=== PATIENT | male | born 1945 | race Caucasian/White ===

== ENCOUNTER 2017-03-20 04:52 | Inpatient (IN) | payer MEDICARE ==
--- NOTE | 2017-03-20 05:35 | C.PDOC ---
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 Pt notes that he woke up in the middle of the night to urinate when he began to not feel well, became dizzy and ended up on the floor. Pt is a poor historian and unable to articulate or recall if he fainted or fell. Pt questioned in Kyrgyz and Creole (using in gem expert services, gem expert # [id number]) but still gives vague answers. Pt denies chest pain, SOB, dizziness, fever , chills, nausea, or vomiting. pt doesn't feel dizzy now. Time Seen by Provider: 03/20/17 05:31 Chief Complaint (Nursing): Abnormal Skin Integrity History Per: Patient History/Exam Limitations: language barrier (#2912) Onset/Duration Of Symptoms: Hrs Current Symptoms Are (Timing): Still Present Location Of Injury: Anterior: Mouth (Bottom lip) Severity: Mild Recent travel outside of the [place]: No Additional History Per: Patient Past Medical History Reviewed: Historical Data (bph), Nursing Documentation, Vital Signs Vital Signs: Last Vital Signs Temp 98 F 03/20/17 05:02 Pulse 84 03/20/17 05:02 Resp 16 03/20/17 05:02 BP 150/92 H 03/20/17 05:02 Pulse Ox 99 03/20/17 07:59 - Medical History PMH: Diabetes Other PMH: prostate problems - [facility] Procedures COLONOSCOPY (07/18/99) CYSTOSCOPY NEC (12/25/99) ESOPHAGOGASTRODUODENOSCOPY [EGD] W/CLOSED BIOPSY (04/21/99) RADICAL EXCIS SKIN LES (10/13/98) RETROGRADE PYELOGRAM (12/25/99) Family History: States: Unknown Family Hx - Social History Hx Tobacco Use: Yes Hx Alcohol Use: No Hx Substance Use: No - Immunization History Hx Tetanus Toxoid Vaccination: No Hx Influenza Vaccination: No Hx Pneumococcal Vaccination: No Review Of Systems Review Of Systems: ROS cannot be obtained secondary to pt's inabilty to answer questions. Constitutional: Negative for: Fever, Chills Eyes: Negative for: Vision Change Cardiovascular: Negative for: Chest Pain Respiratory: Negative for: Cough, Shortness of Breath Gastrointestinal: Negative for: Nausea, Vomiting, Abdominal Pain Genitourinary: Negative for: Dysuria, Frequency, Incontinence Skin: Positive for: Lesions (Laceration to the bottom lip) Neurological: Negative for: Weakness, Numbness, Dizziness Physical Exam - Physical Exam Appears: Non-toxic, No Acute Distress Skin: Warm, Dry, Other (2 cm diagonal deep laceration to area between chin and lower lips. ) Head: Normacephalic, Abrasion (inner lip), Laceration (2cm deep laceration to the upper chin/ lower bottom lip.) Eye(s): bilateral: EOMI, Other (Pinpoint pupils. No hemotympanum) Oral Mucosa: Moist Lips: Other (abrasions to inner lower lip from teeth) Teeth: Other (teeth intact, not tender to palp, not loose. ) Neck: Trachea Midline, Supple Chest: Symmetrical Cardiovascular: Rhythm Regular Respiratory: Normal Breath Sounds, No Rales, No Rhonchi, No Wheezing Gastrointestinal/Abdominal: Soft, No Tenderness Extremity: No Pedal Edema, No Calf Tenderness, Capillary Refill (<2secs), No Deformity Neurological/Psych: Oriented x3, Normal Speech, Normal Cranial Nerves, Normal Motor, Normal Sensation, Other (No focal deficit) Gait: Steady ED Course And Treatment - Laboratory Results Result Diagrams: 03/20/17 06:17 03/20/17 06:17 ECG: Interpreted By Me, Viewed By Me ECG Rhythm: Sinus Rhythm ECG Interpretation: Abnormal Interpretation Of ECG: Nonspecific T wave abnormality Rate From EC O2 Sat by Pulse Oximetry: 99 (RA) Pulse Ox Interpretation: Normal Laceration - Laceration Repair chin Wound Length (In cm): 2 cm Description Of Wound: Linear, Clean Anesthesia: Lidocaine 1% Wound Examination: Irrigated With Saline, No FB With Wound Exploration, No Tendon Injury With Wound Exploration Wound Closure: Suture Suture Technique And Material Used: Running, Interrupted Wound Complexity: Simple Medical Decision Making Medical Decision Making: Impression: 71 y/o male c/o 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 discussed with Dr Echavarria. will admit pt to his service on tele. Disposition - Disposition Disposition: HOSPITALIZED Disposition Time: 08:02 Condition: STABLE - Clinical Impression Clinical Impression: Syncope and collapse, Diabetes - Scribe Statement The provider has reviewed the documentation as recorded by the Scribe Roland perales All medical record entries made by the Scribe were at my direction and personally dictated by me. I have reviewed the chart and agree that the record accurately reflects my personal performance of the history, physical exam, medical decision making, and the department course for this patient. I have also personally directed, reviewed, and agree with the discharge instructions and disposition. Decision To Admit - Pt Status Changed To: Hospital Disposition Of: Observation - . Bed Request Type: Telemetry Admitting Physician: Constantino Macedo Patient Diagnosis: Syncope and collapse, Diabetes
[2017-03-20] MEDS ORDERED: Lidocaine 1% Inj (20ml) INFIL ONE (05:46)
[2017-03-20] MEDS ORDERED: Lidocaine 1% Inj (20ml) ONE (06:12)
[2017-03-20 06:24] LABS: BASO % 0.4 % (0.0-2.0); EOS # 0.1 K/uL (0.0-0.7); EOS % 0.6 % (0.0-4.0); HEMATOCRIT 46.3 % (35.0-51.0); LYMPH # 2.2 K/uL (1.0-4.3); LYMPH % 22.6 % (20.0-40.0); MEAN CELL VOLUME 99.7 fL (80.0-94.0); MEAN CORPUSCULAR HEMOGLOBIN 34.4 pg (27.0-31.0); MEAN CORPUSCULAR HGB CONC 34.5 g/dL (33.0-37.0); MEAN PLATELET VOLUME 8.4 fL (7.2-11.7); MONO # 0.7 K/uL (0.0-0.8); MONO % 7.6 % (0.0-10.0); RED CELL DISTRIBUTION WIDTH 12.8 % (11.5-14.5); WHITE BLOOD COUNT 9.6 K/uL (4.8-10.8)
[2017-03-20 06:32] LABS: CHLORIDE 102 mmol/L (98-107); SODIUM 140 mmol/L (132-148)
[2017-03-20 06:34] LABS: GFR AFRICAN-AMERICAN > 60
[2017-03-20 06:35] LABS: ALB/GLOB RATIO 1.3 (1.0-2.1); ALKALINE PHOSPHATASE 56 U/L (38-126); ALT/SGPT 35 U/L (21-72); AST/SGOT 24 U/L (17-59); BILIRUBIN,TOTAL 1.6 mg/dL (0.2-1.3); BLOOD UREA NITROGEN 11 mg/dL (9-20); CALCIUM 8.7 mg/dl (8.6-10.4); CARBON DIOXIDE 25 mmol/L (22-30); GLUCOSE,RANDOM 181 mg/dL (75-110); TOTAL PROTEIN 6.9 g/dL (6.3-8.3)
--- NOTE | 2017-03-20 07:58 | CT ---
EXAM: CT Cervical Spine Without Intravenous Contrast CLINICAL HISTORY: 71 years old, male; Pain; Neck pain; Additional info: Fall ? loc TECHNIQUE: Axial computed tomography images of the cervical spine without intravenous contrast. This CT exam was performed using one or more of the following dose reduction techniques: automated exposure control, adjustment of the mA and/or kV according to patient size, and/or use of iterative reconstruction technique. Coronal and sagittal reformatted images were created and reviewed. EXAM DATE/TIME: 03/20/2017 5:46 AM COMPARISON: No relevant prior studies available. FINDINGS: Vertebrae: Osteophytes, most prominent at C5 and C6. No acute fracture or subluxation. Midline non-fusion cleft posterior arch of C6 Discs/spinal canal/neural foramina: Facet joint arthrosis, most prominent at C3-4. Narrowing of C5-6 disc and to a lesser extent C6-7. Uncovertebral joint hypertrophy and bony foramina encroachment at both levels, greater at C5-6. Also broad based spondylotic ridge at C5-6 with effacement of anterior subarachnoid space. Soft tissues: Unremarkable. Lung apices: Unremarkable as visualized. IMPRESSION: No acute bony injury. Degenerative changes.
--- NOTE | 2017-03-20 07:59 | CT ---
EXAM: CT Head Without Intravenous Contrast CLINICAL HISTORY: 71 years old, male; Pain; Headache; Additional info: Fall 2/.2 dizziness, ? loc TECHNIQUE: Axial computed tomography images of the head/brain without intravenous contrast. This CT exam was performed using one or more of the following dose reduction techniques: automated exposure control, adjustment of the mA and/or kV according to patient size, and/or use of iterative reconstruction technique. EXAM DATE/TIME: 03/20/2017 5:45 AM COMPARISON: No relevant prior studies available. FINDINGS: There is no hemorrhage. No edema, midline shift or mass effect is noted. There is normal camacho white differentiation. Ventricles, cisterns and sulci are normal for age. Calvarium is unremarkable. Included paranasal sinuses and mastoids are clear. IMPRESSION: No acute cerebral hemorrhage or edema.
[2017-03-20 08:19] LABS: RBC URINE 2 /hpf (0-3); URINE BILIRUBIN NEGATIVE (NEGATIVE); URINE BLOOD NEGATIVE (NEGATIVE); URINE COLOR Yellow (YELLOW); URINE GLUCOSE (UA) NORMAL (Normal); URINE KETONE NEGATIVE (NEGATIVE); URINE LEUKOCYTE ESTERASE NEG Leu/uL (Negative); URINE PROTEIN NEGATIVE (NEGATIVE); URINE UROBILINOGEN NORMAL mg/dL (0.2-1.0); WBC URINE 1 /hpf (0-5)
[2017-03-20] MEDS: (Novolog) Insulin Aspart, Recombinant 100 u/ml 10 ml vial SC SCH ×3 (14:21→21:57)
--- NOTE | 2017-03-20 18:20 | CARD ---
APPROVED REPORT EXAM: Two-dimensional and M-mode echocardiogram with Doppler and color Doppler. Other Information Quality : GoodRhythm : INDICATION Syncope RISK FACTORS Diabetes M-Mode DIMENSIONS RVDd1.46 (2.1-3.2cm)Left Atrium (MM)3.47 (2.5-4.0cm) IVSd1.17 (0.7-1.1cm)Aortic Root3.68 (2.2-3.7cm) LVDd4.46 (4.0-5.6cm)Aortic Cusp Exc.1.74 (1.5-2.0cm) PWd1.11 (0.7-1.1cm)FS (%) 36 % LVDs2.83 (2.0-3.8cm)LVEF (%)66 (>50%) Mitral Valve MV E Vykjhcvu28.2cm/sMV A Xofgrsmx27.3cm/sE/A ratio0.9 TDI E/Lateral E'0.0E/Medial E'0.0 Tricuspid Valve TR Peak Lntslwqd319pf/sTR Peak Gr.[id number] LEFT VENTRICLE The left ventricle is normal size. There is normal left ventricular wall thickness. The left ventricular function is normal. The left ventricular ejection fraction is within the normal range. There is normal LV segmental wall motion. The left ventricular diastolic function is normal. RIGHT VENTRICLE The right ventricle is normal size. ATRIA The left atrium size is normal. The right atrium size is normal. AORTIC VALVE The aortic valve is normal in structure. MITRAL VALVE The mitral valve is normal in structure. TRICUSPID VALVE There is trace tricuspid regurgitation. <Conclusion> Normal LV systolic function. Normal chamber size. Trace to mild TR.
[2017-03-20] MEDS ORDERED: Iodixanol 320 MG/ML 100 ML BOTTLE IV ONE (19:38)
--- NOTE | 2017-03-20 19:53 | CON ---
DATE: 03/20/2017 REASON FOR CONSULTATION: Syncope. The patient is a 71-year-old male from [facility] who has a history of hypertension, diabetes mellitus and is a smoker. He presented because of a syncopal episode. The patient stated that he felt dizzy and lost consciousness, fell and hit his chin, required stitches below his lips. The patient denies any prior similar episodes. He denies any chest pain or shortness of breath and is unaware of any histo ry of heart attack in the past. MEDICATIONS: Bystolic 5 mg daily, Crestor 5 mg at bedtime, aspirin 81 mg once a day, Flomax 0.4 mg t wice a day, Glucophage 500 mg daily, NovoLog insulin. REVIEW OF SYSTEMS: No headache, no fever or chills. No tremors. No productive cough and no retrost ernal chest pain. PHYSICAL EXAMINATION: GENERAL: The patient is an elderly male who does not appear to be in acute distress. VITAL SIGNS: Blood pressure 131/ , heart rate 92, temperature 98, respiration 20. HEENT: Normocephalic. NECK: No JVD. CHEST: Clear. HEART: S1, S2 regular. ABDOMEN: Soft. EXTREMITIES: No edema. Cervical spine x-ray: No acute bony injuries, degenerative changes. Head CT scan without contrast: No acute cerebral hemorrhage or edema. Carotid Doppler revealed severe left-sided internal carotid artery stenosis. LABORATORIES: SMA-7 is within normal limits except for glucose of 181, total bilirubin slightly elev ated at 1.6. One set of troponin is negative. Hemoglobin, hematocrit, white count and platelet coun t are within normal limits. EKG revealed normal sinus rhythm at a rate of 70. ASSESSMENT: 1. Syncopal episode. 2. Severe left carotid artery stenosis. 3. Hypertension and diabetes mellitus. RECOMMENDATIONS: Continue current Bystolic 5 mg once a day, aspirin 81 mg once a day, Crestor at 5 m g once a day. I will review the echocardiograph study performed today. Case was discussed with AGENCY RECRUITER. I recommend either a carotid MRA of CT angio of the neck and also a vascular surgical evaluation. The patient already has neuro consultation. Cruz Garland MD cc: [id number] TT: 03/20/2017 19:52:51 Confirmation # [id number] Dictation # [id number]
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
--- NOTE | 2017-03-20 21:39 | CT ---
EXAM: CT Angiography Neck With Intravenous Contrast CLINICAL HISTORY: 71 years old, male; Condition or disease; Occlusion or stenosis of cerebral arteries; Additional info: Carotid artery stenosis TECHNIQUE: Axial computed tomographic angiography images of the neck with intravenous contrast using CT angiography protocol. This CT exam was performed using one or more of the following dose reduction techniques: automated exposure control, adjustment of the mA and/or kV according to patient size, and/or use of iterative reconstruction technique. 3D and MIP reconstructed images were created and reviewed. Coronal and sagittal reformatted images were created and reviewed. CONTRAST: 100 mL of visipaque 320 administered intravenously. EXAM DATE/TIME: Exam ordered 03/20/2017 5:38 PM COMPARISON: No relevant prior studies available. FINDINGS: VASCULATURE: Right common carotid artery: Unremarkable. No significant stenosis. No dissection or occlusion. Right internal carotid artery: There is a small amount of calcified plaque noted within the proximal right internal carotid artery. Extracranial segment is patent with no significant stenosis. No dissection or occlusion. Right external carotid artery: Unremarkable. No occlusion. Right vertebral artery: Unremarkable. No significant stenosis. No dissection or occlusion. Left common carotid artery: Unremarkable. No significant stenosis. No dissection or occlusion. Left internal carotid artery: There is a high-grade pinpoint stenosis noted of the proximal left internal carotid artery. At the point oftightest stenosis the lumen measures approximately a millimeter. Distally the vessel is a small in caliber. Calcified and soft plaque is noted at the left carotid bulb. No dissection or occlusion. Left external carotid artery: Unremarkable. No occlusion. Left vertebral artery: Unremarkable. No significant stenosis. No dissection or occlusion. NECK: Bones/joints: No acute fracture. No dislocation. Soft tissues: Unremarkable as visualized. No mass. CAROTID STENOSIS REFERENCE USING NASCET CRITERIA: % ICA stenosis = (1 - narrowest ICA diameter/diameter of distal cervical ICA) x 100. Mild - <50% stenosis. Moderate - 50-69% stenosis. Severe - 70-94% stenosis. Near occlusion - 95-99% stenosis. Occluded - 100% stenosis. IMPRESSION: 1. Severe stenosis of the left proximal internal carotid artery estimated to be 90%. Distally the vessel is attenuated but continuous suggesting poststenotic underperfusion. 2. Plaque in the right carotid bulb with the no hemodynamically significant stenosis Images were attached to this report and are available at [email or web address]
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
[2017-03-21] MEDS: (Novolog) Insulin Aspart, Recombinant 100 u/ml 10 ml vial SC SCH ×4 (08:25→21:24)
[2017-03-21 10:03] LABS: THYROID STIMULATING HORMONE 1.66 mIU/L (0.46-4.68)
--- NOTE | 2017-03-21 10:56 | VASCLAB ---
PROCEDURE: HISTORY: syncope COMPARISON: None available. TECHNIQUE: Grayscale and duplex Doppler evaluation of the cervical carotid and vertebral arteries were performed. The common carotid, carotid bifurcations and cervical Internal Carotid Artery (ICA) and proximal External Carotid Artery (ECA) were evaluated. The vertebral arteries were evaluated for gross patency and flow direction. Report prepared by Isak Frederick, BS, RVT FINDINGS: RIGHT CAROTID ARTERIES: 1. Common Carotid Artery: No significant focal plaque formation of the right common carotid artery. Maximum Peak Systolic velocity: 98 cm/sec: End-diastolic velocity 24 cm/sec. 2. Carotid Bifurcation: Calcific plaque formation. Maximum Peak Systolic velocity: 74 cm/sec: End-diastolic velocity 11 cm/sec. 3. Internal Carotid Artery: Moderate plaque formation of the right proximal ICA which dose not results in hemodynamically significant stenosis. Plaque description: Calcific 3.1. Proximal Segment: Peak systolic velocity 67 cm/sec: End-diastolic velocity 20 cm/sec - % stenosis 0-15% 3.2. Middle Segment: Peak systolic velocity 98 cm/sec: End-diastolic velocity 29 cm/sec - % stenosis 0-15% 3.3. Distal Segment: Peak systolic velocity 68 cm/sec: End-diastolic velocity 19 cm/sec - % stenosis 0-15% 4. External Carotid Artery: No significant focal plaque formation. Peak systolic velocity 77 cm/sec 5. ICA/CCA Ratio: 1.0 LEFT CAROTID ARTERIES: 1. Common Carotid Artery: No significant focal plaque formation of the left common carotid artery. Maximum Peak Systolic velocity: 68 cm/sec: End-diastolic velocity 9 cm/sec. 2. Carotid Bifurcation: Heterogeneous plaque formation. Maximum Peak Systolic velocity: 80 cm/sec: End-diastolic velocity 8 cm/sec. 3. Internal Carotid Artery: Severe plaque formation of the left proximal ICA which results in a hemodynamically significant stenosis. Plaque description: Heterogeneous 3.1. Proximal Segment: Peak systolic velocity 548 cm/sec: End-diastolic velocity 162 cm/sec - % stenosis 70-95% 3.2. Middle Segment: Peak systolic velocity 49 cm/sec: End-diastolic velocity 0 cm/sec - % stenosis 0-15% 3.3. Distal Segment: Peak systolic velocity 32 cm/sec: End-diastolic velocity 0 cm/sec - % stenosis 0-15% 4. External Carotid Artery: No significant focal plaque formation. Peak systolic velocity 77 cm/sec 5. ICA/CCA Ratio: 8.1 VERTEBRAL ARTERIES: 1. Right Vertebral Artery: The right vertebral artery flow direction is antegrade. 2. Left Vertebral Artery: The left vertebral artery flow direction is antegrade. OTHER FINDINGS: 1. Right Brachial Blood pressure: 136 mmHg. 2. Left Brachial Blood pressure: MmHg. CLEO Waldron notified about the findings. IMPRESSION: RIGHT: Duplex scan does not suggest hemodynamically significant stenosis of the right extracranial carotid arteries. LEFT: Duplex scan does not suggest hemodynamically significant stenosis of the left extracranial carotid arteries.
[2017-03-21] MEDS: Enoxaparin 40 mg Syringe SC SCH (13:51)
--- NOTE | 2017-03-21 15:43 | MRI ---
PROCEDURE: MRI BRAIN WITHOUT CONTRAST HISTORY: syncope COMPARISON: Comparison is made to the previous CT dated 03/20/2017. TECHNIQUE: Multiplanar, multisequence MR images of the brain were obtained without intravenous contrast enhancement. FINDINGS: HEMORRHAGE: None DWI: No evidence of an acute or early subacute infarction. BRAIN PARENCHYMA: No mass effect or edema. Mild atrophy is noted. Mild white matter changes are also noted likely due to chronic microvascular ischemic disease. VENTRICLES: Unremarkable. No hydrocephalus. CRANIUM: Unremarkable. ORBITS: Grossly unremarkable. PARANASAL SINUSES/MASTOIDS: Clear VASCULAR SYSTEM: Skull base flow voids intact. OTHER FINDINGS: None. IMPRESSION: No evidence of acute pathology in the brain. Mild atrophy and mild chronic microvascular white matter ischemic disease.
--- NOTE | 2017-03-21 16:09 | CP.PCM.PN ---
Subjective - Date & Time of Evaluation Date of Evaluation: 03/21/17 Time of Evaluation: 16:05 - Subjective Subjective: Surgery: Dr. Morgan covering Dr. Cervantes Patient states he occasionally feels lightheaded while walking to the bathroom. Otherwise patient reports feeling better. Objective - Vital Signs/Intake and Output Vital Signs (last 24 hours): Temp Pulse Resp BP Pulse Ox 98.2 F 76 20 118/72 97 03/21/17 15:37 03/21/17 15:37 03/21/17 15:37 03/21/17 15:37 03/21/17 15:37 Intake and Output: 03/21/17 03/21/17 06:59 18:59 Intake Total 340 Balance 340 - Medications Medications: Current Medications Aspirin (Ecotrin) 81 mg PO DAILY [facility] Last Admin: 03/21/17 10:10 Dose: 81 mg Enoxaparin Sodium (Lovenox) 40 mg SC DAILY [facility] Last Admin: 03/21/17 13:51 Dose: 40 mg Insulin Aspart (Novolog) 0 unit SC [facility] PRN Reason: Protocol Last Admin: 03/21/17 13:52 Dose: Not Given Nebivolol (Bystolic) 5 mg PO DAILY [facility] Last Admin: 03/21/17 10:10 Dose: 5 mg Rosuvastatin Calcium (Crestor) 20 mg PO [facility] Tamsulosin HCl (Flomax) 0.4 mg PO BID [facility] Last Admin: 03/21/17 10:10 Dose: 0.4 mg - Constitutional Appears: Non-toxic, No Acute Distress - Head Exam Head Exam: ATRAUMATIC, NORMOCEPHALIC - Eye Exam Eye Exam: EOMI, Normal appearance - ENT Exam ENT Exam: Mucous Membranes Moist, Normal Oropharynx - Respiratory Exam Respiratory Exam: NORMAL BREATHING PATTERN. absent: Respiratory Distress - Cardiovascular Exam Cardiovascular Exam: REGULAR RHYTHM. absent: Tachycardia - Neurological Exam Neurological Exam: Alert, Awake, CN II-XII Intact, Oriented x3 Neuro motor strength exam: Left Upper Extremity: 5, Right Upper Extremity: 5, Left Lower Extremity: 5, Right Lower Extremity: 5 - Psychiatric Exam Psychiatric exam: Normal Affect, Normal Mood - Skin Skin Exam: Dry, Warm Assessment and Plan - Assessment and Plan (Free Text) Assessment: 71 y/o male w/ carotid artery stenosis Plan: -at this time patient unsure about pursuing surgery -will discuss w/ primary physician -discussed risks benefits of surgery as well as risks of non surgical treatment -patient aware -further recs per Dr. Morgan covering for Dr. Billy Coates PGY1
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
--- NOTE | 2017-03-21 23:05 | CARD ---
APPROVED REPORT EKG Measurement Heart [id number] <Conclusion> Normal sinus rhythm Nonspecific T wave abnormality Abnormal ECG
[2017-03-22 07:28] LABS: CHLORIDE 104 mmol/L (98-107)
[2017-03-22 07:29] LABS: POTASSIUM 4.2 mmol/L (3.6-5.2); SODIUM 140 mmol/L (132-148)
[2017-03-22 07:31] LABS: GFR AFRICAN-AMERICAN > 60
[2017-03-22 07:32] LABS: BLOOD UREA NITROGEN 17 mg/dL (9-20); CALCIUM 8.6 mg/dl (8.6-10.4); CARBON DIOXIDE 27 mmol/L (22-30); GLUCOSE,RANDOM 116 mg/dL (75-110)
--- NOTE | 2017-03-22 08:38 | PN ---
DATE: 03/22/2017 NEUROLOGICAL PROBLEM: Syncopal attack, asymptomatic significant carotid artery stenosis. PHYSICAL EXAMINATION: VITAL SIGNS: Blood pressure 101/59, mean arterial pressure of 73, respiratory rate 16, temperature a febrile. NEUROLOGIC: The patient's examination is unchanged to compare with my previous examination. His workup has been discussed with the patient. He stated he does not want to do any surgery at this point. Pros and cons of carotid endarterectomy have been discussed. In spite of that, knowing the beneficial effect, he still declined to go for surgery. At this point, I would like him to continue dual antiplatelets, aspirin as well as the Plavix. Jonathan nue cholesterol control and stabilize the blood pressure with angiotensin receptor pat or angiote nsin converting enzyme inhibitors. The patient will be followed if needed. Fco Miller MD cc: [id number] TT: 03/22/2017 08:37:36 Confirmation # [id number] Dictation # [id number] [id number]
[2017-03-22] MEDS: (Novolog) Insulin Aspart, Recombinant 100 u/ml 10 ml vial SC SCH ×4 (09:12→22:11)
[2017-03-22] MEDS: Enoxaparin 40 mg Syringe SC SCH (10:39)
--- NOTE | 2017-03-22 11:04 | PN ---
DATE: 03/21/2017 Today the patient is alert and awake and oriented x 3. Although the patient is still having some diz ziness and last night while he was going to go to the bathroom, the patient felt somewhat dizzy. The patient stated that he had to ring the emergency blackwell in the bathroom to get some help. Now patient denies any nausea, vomiting, no chest pain. However the patient admits having some epigastric pain, especially when he is feeling dizzy and the patient also feels somewhat awake at time. PHYSICAL EXAMINATION: VITAL SIGNS: The patient has a blood pressure of 118/72, pulse 76, respirations 20, temperature 98.2 . HEENT: Head is normocephalic. NECK: Supple and there is no JVD, no carotid bruit noted. LUNGS: Clear. HEART: Regular rate and rhythm. ABDOMEN: Soft and nontender. Mild epigastric tenderness. EXTREMITIES: There is no edema. LABORATORY DATA: The patient had some blood tests done and the blood tests from yesterday showed WBC 9.6, hemoglobin 16, hematocrit 46.3 and platelet is 152. The chemistry from yesterday showed actual ly that ____ 210 and ____ only 175, 150. Hemoglobin A1c is only 5.4 patient. The patient had also a n MRI of the brain done today, that showed no evidence of acute pathology in the brain, mild atrophy and mild chronic microvascular white matter ischemic disease. Also, patient had a CT angio yesterday that has shown right common carotid artery is unremarkable, no significant stenoses, but there is se mary stenoses of the left proximal internal carotid artery estimated to be 90%, distally this vessel is attenuated but ____ perfusion. There is a plaque in the right carotid bulb with no hemodynamicall y significant stenoses. Also the patient had a carotid Doppler that also has revealed the common car otid artery again no significant plaque formation of the right carotid artery, but there is ____ thanh w is antegrade. The left ventricular artery flow is also antegrade and the common carotid artery not significant for ____ formation ____ plaque formation ____ transformation. PLAN: We have a consult with ____ was called and also will have a consult with Dr. Huffman, to phys iologist, and discussed with the patient regarding the surgery for the carotid artery occlusion, but the patient did not really want to do so at this time. The patient will be put on ____ and will star t the patient also on Coumadin. The case was discussed and reviewed with Peggy MERAZ and we are going to continue to anticoagulate the patient. Constantino Macedo MD cc: [id number] TT: 03/21/2017 20:18:03 Confirmation # [id number] Dictation # [id number] [id number]
--- NOTE | 2017-03-22 13:04 | CP.PCM.PN ---
Subjective - Date & Time of Evaluation Date of Evaluation: 03/22/17 Time of Evaluation: 07:00 - Subjective Subjective: VASCULAR SURGERY PROGRESS NOTE FOR DR. GIBSON (covering for Dr. Cervantes) Patient seen and examined at bedside. He reports having mild occasional dizziness. He continues to refuse surgery for his carotid stenosis. Objective - Vital Signs/Intake and Output Vital Signs (last 24 hours): Temp Pulse Resp BP Pulse Ox 97.7 F 79 20 128/73 95 03/22/17 08:05 03/22/17 08:05 03/22/17 08:05 03/22/17 08:05 03/22/17 08:05 Intake and Output: 03/22/17 03/22/17 06:59 18:59 Intake Total 120 Balance 120 - Medications Medications: Current Medications Amlodipine Besylate (Norvasc) 5 mg PO DAILY [facility] Aspirin (Ecotrin) 81 mg PO DAILY [facility] Last Admin: 03/22/17 10:39 Dose: 81 mg Clopidogrel Bisulfate (Plavix) 75 mg PO DAILY [facility] Last Admin: 03/22/17 10:39 Dose: 75 mg Enoxaparin Sodium (Lovenox) 40 mg SC DAILY [facility] Last Admin: 03/22/17 10:39 Dose: 40 mg Insulin Aspart (Novolog) 0 unit SC [facility] PRN Reason: Protocol Last Admin: 03/22/17 12:19 Dose: 2 unit Rosuvastatin Calcium (Crestor) 20 mg PO HS [facility] Last Admin: 03/21/17 21:28 Dose: 20 mg Tamsulosin HCl (Flomax) 0.4 mg PO BID [facility] Last Admin: 03/22/17 10:40 Dose: 0.4 mg - Labs Labs: 03/22/17 06:50 - Constitutional Appears: Non-toxic, No Acute Distress - Head Exam Head Exam: NORMAL INSPECTION - Eye Exam Eye Exam: EOMI - Respiratory Exam Respiratory Exam: NORMAL BREATHING PATTERN. absent: Respiratory Distress - Cardiovascular Exam Cardiovascular Exam: +S1, +S2 - Neurological Exam Neurological Exam: Alert, Awake, Oriented x3 - Psychiatric Exam Psychiatric exam: Normal Affect, Normal Mood - Skin Skin Exam: Dry, Normal Color, Warm Assessment and Plan - Assessment and Plan (Free Text) Assessment: 71yo M with left carotid artery stenosis - We recommend surgical carotid endarterectomy - Patient still refuses any surgical intervention for carotid artery stenosis - The risks and benefits of the surgery were explained in detail to the patient yesterday by Dr. Morgan. Patient understands risks. - On Aspirin and Plavix, cholesterol control and BP control per Dr. Miller - Further discussion with primary regarding treatment options - Discussed plan with Dr. Yumiko Pastor PGY-2
[2017-03-22 13:11] VITALS: O2SAT 98
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
[2017-03-23] MEDS: (Novolog) Insulin Aspart, Recombinant 100 u/ml 10 ml vial SC SCH ×2 (07:45→12:08)
[2017-03-23 08:36] VITALS: BP 112/68; PULSE 75; RESP 20; TEMP 98.1
[2017-03-23] MEDS: Enoxaparin 40 mg Syringe SC SCH (10:10)
--- NOTE | 2017-03-23 13:15 | CP.PCM.PN ---
Subjective - Date & Time of Evaluation Date of Evaluation: 03/23/17 Time of Evaluation: 13:00 - Subjective Subjective: Pt seen today , denies dizziness c/o hip pain no other complaints voiced . Dr. Cervantes seen today and discussed with patient regarding the benefits of the surgery over medical management for carotid stenosis Patient refused surgery for his carotid stenosis. BP and HR stable Objective - Vital Signs/Intake and Output Vital Signs (last 24 hours): Temp Pulse Resp BP Pulse Ox 98.1 F 75 20 112/68 98 03/23/17 08:36 03/23/17 09:15 03/23/17 08:36 03/23/17 08:36 03/23/17 08:36 Intake and Output: 03/23/17 03/23/17 06:59 18:59 Intake Total 240 Balance 240 - Medications Medications: Current Medications Amlodipine Besylate (Norvasc) 5 mg PO DAILY [facility] Aspirin (Ecotrin) 81 mg PO DAILY [facility] Last Admin: 03/23/17 10:10 Dose: 81 mg Clopidogrel Bisulfate (Plavix) 75 mg PO DAILY [facility] Last Admin: 03/23/17 10:10 Dose: 75 mg Enoxaparin Sodium (Lovenox) 40 mg SC DAILY [facility] Last Admin: 03/23/17 10:10 Dose: 40 mg Insulin Aspart (Novolog) [address] [facility] PRN Reason: Protocol Last Admin: 03/23/17 12:08 Dose: 2 unit Rosuvastatin Calcium (Crestor) 20 mg PO HS [facility] Last Admin: 03/22/17 22:23 Dose: 20 mg Tamsulosin HCl (Flomax) 0.4 mg PO BID [facility] Last Admin: 03/23/17 10:10 Dose: 0.4 mg - Labs Labs: 03/22/17 06:50 - Constitutional Appears: Well, Non-toxic, No Acute Distress - Respiratory Exam Respiratory Exam: NORMAL BREATHING PATTERN - Cardiovascular Exam Cardiovascular Exam: REGULAR RHYTHM Assessment and Plan - Assessment and Plan (Free Text) Assessment: A/P 71 yr old male admitted for syncope Carotid doppler + sever stenosis CT - Severe stenosis of the left proximal internal carotid artery estimated to be 90%. Distally the vessel is attenuated but continuous suggesting poststenotic underperfusion. Plaque in the right carotid bulb with the no hemodynamically significant stenosis Pt refused surgery for carotid stenosis , opted medical management seen by Dr. Macedo today, D/W Dr. Macedo, stable for discharge home today with aspirin and plavix an d f/u wiht Dr. Macedo office next Pt instructed to returns to ED if symptoms returns or any other concerning symptoms
--- NOTE | 2017-03-23 13:49 | PN ---
DATE: 03/23/2017 SUBJECTIVE: Today, the patient is alert and awake. Denies any dizziness or shortness of breath, no palpitation. The patient had a bowel movement today and no feeling of passing out. No chest pain PHYSICAL EXAMINATION: VITAL SIGNS: The patient has a blood pressure of 112/68, pulse 75, respiration 20, temperature 98.1. HEENT: Normocephalic. NECK: Supple, no JVD noted, no carotid bruit heard. LUNGS: Clear. HEART: Regular rate and rhythm. ABDOMEN: Soft and nontender. No palpable mass and ____ mild tenderness in the left lower back EXTREMITIES: Some mild tenderness in the right knee. PLAN: As suggested by neurologist the patient will be put on aspirin and Plavix and will be also on Norvasc. EP study as outpatient with Dr. Huffman____. Constantino Macedo MD cc: [id number] TT: 03/23/2017 13:48:57 Confirmation # [id number] Dictation # [id number] maikol
--- NOTE | 2017-03-23 15:33 | CP.PCM.PN ---
Subjective - Date & Time of Evaluation Date of Evaluation: 03/23/17 Time of Evaluation: 07:00 - Subjective Subjective: VASCULAR SURGERY PROGRESS NOTE FOR DR. CHUN AND DR. MORGAN Patient seen and examined at bedside. He denies dizziness but reports some MORRISSEY. Both Dr. Chun and Dr. Morgan spoke with patient regarding the benefits of the surgery over medical management. Patient was again informed of stroke risk if he does not have the CEA. Patient continues to adamantly refuse surgery for his carotid stenosis. Objective - Vital Signs/Intake and Output Vital Signs (last 24 hours): Temp Pulse Resp BP Pulse Ox 98.1 F 75 20 112/68 98 03/23/17 08:36 03/23/17 09:15 03/23/17 08:36 03/23/17 08:36 03/23/17 08:36 Intake and Output: 03/23/17 03/23/17 06:59 18:59 Intake Total 240 Balance 240 - Medications Medications: Current Medications Amlodipine Besylate (Norvasc) 5 mg PO DAILY [facility] Aspirin (Ecotrin) 81 mg PO DAILY [facility] Last Admin: 03/23/17 10:10 Dose: 81 mg Clopidogrel Bisulfate (Plavix) 75 mg PO DAILY [facility] Last Admin: 03/23/17 10:10 Dose: 75 mg Enoxaparin Sodium (Lovenox) 40 mg SC DAILY [facility] Last Admin: 03/23/17 10:10 Dose: 40 mg Insulin Aspart (Novolog) 0 unit SC [facility] PRN Reason: Protocol Last Admin: 03/23/17 12:08 Dose: 2 unit Rosuvastatin Calcium (Crestor) 20 mg PO HS [facility] Last Admin: 03/22/17 22:23 Dose: 20 mg Tamsulosin HCl (Flomax) 0.4 mg PO BID [facility] Last Admin: 03/23/17 10:10 Dose: 0.4 mg - Labs Labs: 03/22/17 06:50 Assessment and Plan - Assessment and Plan (Free Text) Assessment: 71yo M with left carotid artery stenosis - We recommend surgical carotid endarterectomy - Patient still refuses any surgical intervention for carotid artery stenosis - The risks and benefits of the surgery were explained in detail to the patient by both Dr. Chun and Dr. Morgan. Patient understands risks. - On Aspirin and Plavix, cholesterol control and BP control per Dr. Paul - As patient does not wish to have surgery, will sign off at this time - Discussed plan with Dr. Chun and Dr. Cathy Pastor PGY-2
--- NOTE | 2017-03-25 21:07 | EEG ---
DATE: 03/20/2017 This is a 16-channel electroencephalogram of awake and drowsy adult. During the study, photic stimul ation was performed. Hyperventilation was not performed. The resting electroencephalogram consists of 9-11 Hz moderate voltage alpha activity seen at parietal and occipital leads. Anteriorly fast activity superimposed with 2-3 Hz delta activity seen at front al and central leads. Movement artifact contaminated the background rhythm intermittently. The phot ic stimulation did not evoke driving response noted at 2-20 Hz. IMPRESSION: This is a normal electroencephalogram of awake and drowsy adult. During the study, neit her electroencephalographic paroxysmal activities nor focal slowing noted. Fco Miller MD cc: [id number] TT: 03/25/2017 21:07:29 Confirmation # [id number] Dictation # [id number] mn
--- NOTE | 2017-03-26 07:25 | PN ---
DATE: 03/22/2017 Today, the patient is alert and oriented, but the patient is complaining of dizziness and the patient is still having he was going to pass out this morning in the bathroom. The patient denied any chest pain. The patient has a blood pressure of 116/73, pulse is 73, respirations are 20 and temper ature 97.9. NECK: Supple. No JVD. LUNGS: Clear. HEART: Regular rate and rhythm. ABDOMEN: Soft, nontender, no palpable mass and obese. EXTREMITIES: There is no edema. LABORATORY DATA: The blood tests to the patient is that the glucose is 171, sodium 140, potassium 4.2 , chloride 104, bicarb is 27, BUN 17, creatinine 1 and glucose 116 and calcium is 8.6. Hemoglobin A1 c was 5.4. The case was again discussed with the patient regarding surgery, but the patient has . PLAN: We are going to continue the patient with antiplatelet aspirin and Plavix and now, the patient is on Lovenox and also we going to try to contact Dr. Sue the specimen preparation assistant who could consider TERESITA levin. The Neuro progress note Dr. Miller is appreciated. Constantino Macedo MD cc: [id number] TT: 03/22/2017 17:32:00 Confirmation # [id number] Dictation # [id number] 03/26/2017 06:24:25
--- NOTE | 2017-03-30 09:36 | CARD ---
APPROVED REPORT Reason for Test: SYNCOPE Hookup date: 2017-03-22 Removal date: 2017-03-23 Scan date: 2017-03-28 Recording time: 23 HR 59 MIN Heart Rate Data Total Beats: [id number] Min HR: 62 BPM at 4:20AM Avg HR: 75 BPM Max HR: 117 BPM at 6:22AM Supraventricular Ectopy Total VE Beats: 4 (0.0%) Longest R-R: 1.0 sec at 4:20 AM Single PAC's: 4 Conclusion SINUS RHYTHM WITH OCCASIONAL PACS. NO SIGNIFICANT TACHY OR AWAIS ARRYTHMIAS.
--- NOTE | 2017-04-08 21:59 | DS ---
The patient is a 71-year-old man with history of hypertension and diabetes. The patient was brought to the Emergency Room because the patient was found to have a syncopal episode. The patient stated t hat he was in the bathroom, he passed out and fell, and he hit the lower lip. The patient was seen in the Emergency Room and had a suture of the lower lip, and the patient was admitted. The patient d id not remember the circumstances of the syncope, but the patient declared that after that he was fee ling very weak on the floor and it took a lot of time before calling the police and EMS. The patient had a consult with Dr. Garland, cardiology, and Dr. Miller the neurologist. So the patient had mul tiple tests done. Among them, the patient had carotid Doppler that has revealed a severe stenoses an d a severe carotid stenosis. The patient had a consult with Dr. Cervantes. The patient was offered t o have an endarterectomy, but the patient has refused. of the surgery, but the patient s till refused but opted for medical treatment, and the patient will be on Plavix and aspirin as also r ecommended by Dr. Miller, the neurologist. So, patient will be going home on discharge medications, a nd will follow this patient in the office. Constantino Macedo MD cc: [id number] TT: 04/08/2017 21:58:16 sonam
== END 2017-03-23 15:00 | disposition home or self-care (01) | DRG 68 ==
LOC: C.ER 04:52 → C.9E 07:58 → C.5T 09:18 → OBSVTOIN 17:58 → C.6T 03-22 13:16
PROVIDERS: ADMIT Specialist; ATTEND Specialist
DX: I65.22 Occlusion and stenosis of left carotid artery (principal); E11.9 Type 2 diabetes mellitus without complications; I10 Essential (primary) hypertension; R55 Syncope and collapse; S01.511A Laceration without foreign body of lip, initial encounter; W45.8XXA Other foreign body or object entering through skin, initial encounter; N40.0 Benign prostatic hyperplasia without lower urinary tract symptoms; F17.210 Nicotine dependence, cigarettes, uncomplicated; E78.5 Hyperlipidemia, unspecified; L90.5 Scar conditions and fibrosis of skin; R39.198 Other difficulties with micturition